=== PATIENT | female | born 1995 | race African-American/Black ===

== ENCOUNTER 2024-09-13 13:04 | Emergency (ER) | payer MEDICAID ==
[2024-09-13 13:45] VITALS: PULSE 84; O2SAT 96
[2024-09-14] MEDS ORDERED: FLUC150T46 MT (23:27)
== END 2024-09-13 14:06 | disposition left against medical advice (07) ==
LOC: ER 13:04
DX: B99.8 Other infectious disease (principal); Z53.21 Procedure and treatment not carried out due to patient leaving prior to being seen by health care provider

== ENCOUNTER 2024-09-14 22:02 | Emergency (ER) | payer MEDICAID ==
[~2024-09-14] VITALS: Ht 162.6 cm; Wt 133.0 kg
[2024-09-14 22:05] VITALS: BP 116/68; RESP 18; TEMP 98; O2SAT 98
[2024-09-14 22:11] VITALS: PULSE 84
[2024-09-14] MEDS ORDERED: FLUC150T46 MT (23:27)
== END 2024-09-14 23:51 | disposition home or self-care (01) ==
LOC: ER 22:02
DX: N76.0 Acute vaginitis (principal)
CPT/HCPCS: 81025; 99283

== ENCOUNTER 2024-09-29 00:34 | Emergency (ER) | payer MEDICAID ==
[~2024-09-29] VITALS: Ht 162.6 cm; Wt 133.0 kg
[~2024-09-29 00:34] MED LIST: FLUC150T46 MT
[2024-09-29 00:47] VITALS: O2SAT 100
[2024-09-29 00:50] VITALS: BP 109/73; PULSE 86; RESP 18; TEMP 98.2; O2SAT 100
[2024-09-29 01:17] LABS: BASOPHILS % 0.5 % (0.0-2.0); EOSINOPHILS % 0.6 % (0.0-5.0); HEMATOCRIT. 39.8 % (36.0-48.0); HEMOGLOBIN. 13.1 g/dL (12.0-16.0); LYMPHOCYTES % 31.2 % (20.0-50.0); MEAN CORPUSCULAR HEMOGLOBIN 29.4 pg (28.0-32.0); MEAN CORPUSCULAR HGB CONC 32.9 g/dL (31.0-37.0); MEAN CORPUSCULAR VOLUME 89.4 fL (81.0-99.0); MEAN PLATELET VOLUME 8.1 fl (7.4-10.4); MONOCYTES % 5.9 % (2.0-8.0); NEUTROPHILS % 61.8 % (40.0-76.0); PLATELET 253 x1000/uL (130-400); RED BLOOD CELL COUNT 4.45 mill/uL (4.2-5.4); RED CELL DISTRIBUTION WIDTH 13.8 % (11.6-14.6); WHITE BLOOD COUNT 10.5 x1000/uL (4.5-11.0)
[2024-09-29 01:22] LABS: CARBON DIOXIDE 28 mEq/L (21-32); CHLORIDE 106 mEq/L (98-107); SODIUM 138 mEq/L (136-145)
[2024-09-29 01:23] LABS: CALCIUM 9.2 mg/dL (8.7-10.4)
[2024-09-29 01:28] LABS: CREATININE 0.7 mg/dL (0.6-1.0); GLUCOSE 90 mg/dL (70-105); UREA NITROGEN BLOOD 17 mg/dL (9-23)
[2024-09-29 01:29] LABS: ALANINE AMINOTRANSFERASE 8 IU/L (10-49)
[2024-09-29 01:30] LABS: ALBUMIN 4.1 g/dL (3.2-4.8); ASPARTATE AMINOTRANSFERASE 14 IU/L (<34); BILIRUBIN TOTAL 0.2 mg/dL (0.1-1.0)
[2024-09-29 01:33] LABS: BILIRUBIN DIRECT < 0.1 mg/dL (<=3.0)
[2024-09-29 01:35] LABS: HCG SCREEN NEGATIVE
[2024-09-29 02:59] LABS: CLARITY URINE CLEAR (CLEAR); COLOR URINE YELLOW (YELLOW); GLUCOSE URINE NEGATIVE (NEGATIVE); KETONES URINE NEGATIVE (NEGATIVE); LEUKOCYTE ESTERASE URINE TRACE (NEGATIVE); NITRITE URINE NEGATIVE (NEGATIVE); OCCULT BLOOD URINE NEGATIVE (NEGATIVE); PH URINE 6.5 (4.5-8.0); PROTEIN URINE NEGATIVE (NEGATIVE); SPECIFIC GRAVITY URINE 1.024 (1.005-1.030); UROBILINOGEN URINE 0.2 E.U./dL (0.2-1.0)
[2024-09-29 05:25] LABS: SQUAMOUS EPITHELIAL CELL URINE 1+ /lpf (RARE/1+)
[2024-09-29 05:26] LABS: RBC URINE 0-2 /hpf (0-2); WBC URINE 0-2 /hpf (0-2)
[2024-09-29 05:27] LABS: BACTERIA URINE TRACE
== END 2024-09-29 05:23 | disposition home or self-care (01) ==
LOC: ER 00:50
DX: R10.9 Unspecified abdominal pain (principal); Z53.21 Procedure and treatment not carried out due to patient leaving prior to being seen by health care provider
CPT/HCPCS: 36415; 80048; 80076; 81003; 84703; 85025

== ENCOUNTER 2025-01-29 08:04 | Emergency (ER) | payer OTHER ==
[~2025-01-29] VITALS: Ht 162.6 cm; Wt 137.0 kg
[2025-01-29 08:05] VITALS: O2SAT 100
[2025-01-29 08:09] VITALS: BP 138/88; PULSE 91; RESP 18; TEMP 36.8; O2SAT 96
== END 2025-01-29 09:26 | disposition home or self-care (01) ==
LOC: ER 08:04
DX: K64.9 Unspecified hemorrhoids (principal); Z91.013 Allergy to seafood; Z53.21 Procedure and treatment not carried out due to patient leaving prior to being seen by health care provider
CPT/HCPCS: 99281